=== PATIENT | male | born 1945 | race Caucasian/White ===

== ENCOUNTER 2020-10-10 10:44 | Inpatient (IN) ==
[2020-10-10] MEDS ORDERED: predniSONE 10 MG TABLET PO SCH (15:30)
[2020-10-10] MEDS ORDERED: Ondansetron ODT 4 MG TAB.RAPDIS PO PRN (15:30)
[2020-10-10] MEDS ORDERED: Sennosides 8.6 MG TABLET PO PRN (15:30)
[2020-10-10] MEDS ORDERED: Torsemide 20 MG TABLET PO SCH (17:00)
[2020-10-10] MEDS: Metoprolol XL (24 HR) Succ 50 MG TAB.ER.24H PO SCH (21:19)
[2020-10-10] MEDS: Melatonin 3 MG TABLET PO PRN (21:19)
[2020-10-10] MEDS: cephALEXin 500 MG CAPSULE PO SCH (21:19)
[2020-10-10] MEDS: Apixaban 5 MG TABLET PO SCH (21:19)
[2020-10-10] MEDS: Nystatin Cream 15 GM TUBE TP SCH (21:20)
[2020-10-10] MEDS: Budesonide/Formoterol 160/4.5 1 PUFF INH IH SCH (21:21)
[2020-10-11] MEDS: *HR* OxyCODONE Immed Rel 5 MG TABLET PO PRN (03:22)
[2020-10-11 06:45] LABS: Basophils % 0.1 %; Eosinophils # 0.1 K/mcL (0.0-0.6); Eosinophils % 0.6 %; Hematocrit 26.3 % (37.5-50.1); Hemoglobin 8.7 g/dL (12.9-16.9); Immature Granulocytes % 2.4 % (0-4); Lymphocytes # 0.9 K/mcL (0.6-4.6); Lymphocytes % 8.7 %; Mean Corpuscular HGB Conc 33.1 g/dL (31.6-35.5); Mean Corpuscular Hemoglobin 29.6 pg (28.0-33.3); Mean Corpuscular Volume 89.5 fL (83.0-100.0); Mean Platelet Volume 8.3 fL (9.4-12.4); Monocytes # 1.6 K/mcL (0.0-1.3); Monocytes % 16.4 %; Neutrophils # 7.1 K/mcL (1.6-8.9); Platelet Count 240 K/mcL (140-400); Red Blood Count 2.94 M/mcL (4.19-5.50); Red Cell Distribution Width 15.5 % (11.5-14.5); Segmented Neutrophils % 71.8 %; White Blood Count 9.9 K/mcL (4.3-11.1)
[2020-10-11] MEDS: Budesonide/Formoterol 160/4.5 1 PUFF INH IH SCH ×2 (07:01→20:02)
[2020-10-11] MEDS: Ipratropium/Albuterol Neb 3 ML IH PRN (07:01)
[2020-10-11 07:37] LABS: BUN/Creatinine Ratio 22 (6-26); Blood Urea Nitrogen 9 mg/dL (8-23); Calcium 8.2 mg/dL (8.6-10.3); Carbon Dioxide 43 mEq/L (23-29); Chloride 83 mEq/L (98-107); Glucose 111 mg/dL (70-105); Osmolality,Calculated 271 (280-300); Potassium 3.1 mEq/L (3.5-5.1); Sodium 131 mEq/L (136-145); eGFR For African Americans > 60 (> 60); eGFR For Non-African Americans > 60 (> 60)
[2020-10-11] MEDS ORDERED: Furosemide 40 MG TABLET PO SCH (09:00)
[2020-10-11] MEDS: Torsemide 20 MG TABLET PO SCH ×2 (09:21→16:38)
[2020-10-11] MEDS: cephALEXin 500 MG CAPSULE PO SCH ×3 (09:21→20:29)
[2020-10-11] MEDS: Folic Acid 1 MG TABLET PO SCH (09:21)
[2020-10-11] MEDS: Metoprolol XL (24 HR) Succ 50 MG TAB.ER.24H PO SCH ×2 (09:21→20:30)
[2020-10-11] MEDS: Apixaban 5 MG TABLET PO SCH ×2 (09:21→20:29)
[2020-10-11] MEDS: Aspirin Enteric Coated 81 MG Tablet PO SCH (09:21)
[2020-10-11] MEDS: DilTIAZem CD (24hr) 240 MG CAP.ER.24H PO SCH (09:22)
[2020-10-11] MEDS: polyethylene glycoL 3350 17 GM POWD.PACK PO SCH (09:22)
[2020-10-11] MEDS: Nystatin Cream 15 GM TUBE TP SCH ×2 (12:44→20:36)
[2020-10-11] MEDS: Magnesium Oxide 400 MG TABLET PO SCH (12:49)
[2020-10-11] MEDS: Melatonin 3 MG TABLET PO PRN (20:46)
[2020-10-12] MEDS: Ipratropium/Albuterol Neb 3 ML IH PRN (00:30)
[2020-10-12] MEDS: *HR* OxyCODONE Immed Rel 5 MG TABLET PO PRN ×2 (03:54→11:02)
[2020-10-12 06:01] LABS: Basophils % 0.1 %; Eosinophils % 0.2 %; Hematocrit 26.5 % (37.5-50.1); Hemoglobin 8.8 g/dL (12.9-16.9); Immature Granulocytes % 1.7 % (0-4); Lymphocytes % 10.8 %; Mean Corpuscular HGB Conc 33.2 g/dL (31.6-35.5); Mean Corpuscular Hemoglobin 29.9 pg (28.0-33.3); Mean Corpuscular Volume 90.1 fL (83.0-100.0); Mean Platelet Volume 8.4 fL (9.4-12.4); Monocytes # 1.3 K/mcL (0.0-1.3); Monocytes % 14.5 %; Neutrophils # 6.5 K/mcL (1.6-8.9); Platelet Count 281 K/mcL (140-400); Red Blood Count 2.94 M/mcL (4.19-5.50); Red Cell Distribution Width 15.6 % (11.5-14.5); Segmented Neutrophils % 72.7 %
[2020-10-12 06:18] LABS: BUN/Creatinine Ratio 24 (6-26); Blood Urea Nitrogen 10 mg/dL (8-23); Calcium 8.1 mg/dL (8.6-10.3); Carbon Dioxide 43 mEq/L (23-29); Chloride 83 mEq/L (98-107); Glucose 116 mg/dL (70-105); Osmolality,Calculated 274 (280-300); Potassium 2.8 mEq/L (3.5-5.1); Sodium 132 mEq/L (136-145); eGFR For African Americans > 60 (> 60); eGFR For Non-African Americans > 60 (> 60)
[2020-10-12] MEDS: Budesonide/Formoterol 160/4.5 1 PUFF INH IH SCH ×2 (09:32→20:26)
[2020-10-12] MEDS: Apixaban 5 MG TABLET PO SCH ×2 (09:51→21:26)
[2020-10-12] MEDS: Folic Acid 1 MG TABLET PO SCH (09:51)
[2020-10-12] MEDS: Aspirin Enteric Coated 81 MG Tablet PO SCH (09:51)
[2020-10-12] MEDS: DilTIAZem CD (24hr) 240 MG CAP.ER.24H PO SCH (09:51)
[2020-10-12] MEDS: polyethylene glycoL 3350 17 GM POWD.PACK PO SCH (09:51)
[2020-10-12] MEDS: cephALEXin 500 MG CAPSULE PO SCH ×3 (09:51→21:26)
[2020-10-12] MEDS: Metoprolol XL (24 HR) Succ 50 MG TAB.ER.24H PO SCH ×2 (09:52→21:26)
[2020-10-12] MEDS: Magnesium Oxide 400 MG TABLET PO SCH (09:52)
[2020-10-12] MEDS: Torsemide 20 MG TABLET PO SCH ×2 (09:52→16:48)
[2020-10-12] MEDS: Nystatin Cream 15 GM TUBE TP SCH ×2 (09:52→21:40)
[2020-10-13] MEDS: polyethylene glycoL 3350 17 GM POWD.PACK PO SCH (09:12)
[2020-10-13] MEDS: Aspirin Enteric Coated 81 MG Tablet PO SCH (09:15)
[2020-10-13] MEDS: Apixaban 5 MG TABLET PO SCH ×2 (09:15→21:41)
[2020-10-13] MEDS: DilTIAZem CD (24hr) 240 MG CAP.ER.24H PO SCH (09:15)
[2020-10-13] MEDS: Torsemide 20 MG TABLET PO SCH ×2 (09:15→17:08)
[2020-10-13] MEDS: cephALEXin 500 MG CAPSULE PO SCH ×3 (09:15→21:40)
[2020-10-13] MEDS: Magnesium Oxide 400 MG TABLET PO SCH (09:16)
[2020-10-13] MEDS: Metoprolol XL (24 HR) Succ 50 MG TAB.ER.24H PO SCH ×2 (09:16→21:41)
[2020-10-13] MEDS: Folic Acid 1 MG TABLET PO SCH (09:16)
[2020-10-13] MEDS: Nystatin Cream 15 GM TUBE TP SCH ×2 (09:16→21:40)
[2020-10-13] MEDS: Budesonide/Formoterol 160/4.5 1 PUFF INH IH SCH ×2 (10:08→20:12)
[2020-10-13] MEDS: Melatonin 3 MG TABLET PO PRN (21:41)
[2020-10-13] MEDS: *HR* OxyCODONE Immed Rel 5 MG TABLET PO PRN (23:51)
[2020-10-14] MEDS ORDERED: Acetaminophen 325 MG TABLET PO PRN (04:39)
[2020-10-14] MEDS: Folic Acid 1 MG TABLET PO SCH (09:26)
[2020-10-14] MEDS: Apixaban 5 MG TABLET PO SCH ×2 (09:26→20:47)
[2020-10-14] MEDS: cephALEXin 500 MG CAPSULE PO SCH ×3 (09:27→20:49)
[2020-10-14] MEDS: Magnesium Oxide 400 MG TABLET PO SCH (09:27)
[2020-10-14] MEDS: Aspirin Enteric Coated 81 MG Tablet PO SCH (09:27)
[2020-10-14] MEDS: Torsemide 20 MG TABLET PO SCH ×2 (09:27→15:47)
[2020-10-14] MEDS: DilTIAZem CD (24hr) 240 MG CAP.ER.24H PO SCH (09:27)
[2020-10-14] MEDS: Metoprolol XL (24 HR) Succ 50 MG TAB.ER.24H PO SCH ×2 (09:27→20:48)
[2020-10-14] MEDS: polyethylene glycoL 3350 17 GM POWD.PACK PO SCH (09:28)
[2020-10-14] MEDS: Budesonide/Formoterol 160/4.5 1 PUFF INH IH SCH ×2 (10:16→20:24)
[2020-10-14] MEDS: Nystatin Cream 15 GM TUBE TP SCH ×2 (11:20→20:49)
[2020-10-14] MEDS: *HR* OxyCODONE Immed Rel 5 MG TABLET PO PRN ×2 (12:28→20:47)
[2020-10-14 20:27] VITALS: RESP 18
[2020-10-14] MEDS: Melatonin 3 MG TABLET PO PRN (20:48)
[2020-10-15 04:24] LABS: Basophils % 0.1 %; Eosinophils # 0.1 K/mcL (0.0-0.6); Eosinophils % 0.9 %; Hematocrit 26.2 % (37.5-50.1); Hemoglobin 8.5 g/dL (12.9-16.9); Immature Granulocytes % 0.7 % (0-4); Lymphocytes # 0.9 K/mcL (0.6-4.6); Lymphocytes % 13.8 %; Mean Corpuscular HGB Conc 32.4 g/dL (31.6-35.5); Mean Corpuscular Hemoglobin 29.3 pg (28.0-33.3); Mean Corpuscular Volume 90.3 fL (83.0-100.0); Mean Platelet Volume 8.2 fL (9.4-12.4); Monocytes # 1.3 K/mcL (0.0-1.3); Monocytes % 19.6 %; Neutrophils # 4.4 K/mcL (1.6-8.9); Platelet Count 327 K/mcL (140-400); Red Cell Distribution Width 15.8 % (11.5-14.5); Segmented Neutrophils % 64.9 %; White Blood Count 6.7 K/mcL (4.3-11.1)
[2020-10-15 05:06] LABS: BUN/Creatinine Ratio 25 (6-26); Blood Urea Nitrogen 13 mg/dL (8-23); Calcium 8.1 mg/dL (8.6-10.3); Carbon Dioxide 41 mEq/L (23-29); Chloride 86 mEq/L (98-107); Glucose 103 mg/dL (70-105); Osmolality,Calculated 274 (280-300); Potassium 3.7 mEq/L (3.5-5.1); Sodium 132 mEq/L (136-145); eGFR For African Americans > 60 (> 60); eGFR For Non-African Americans > 60 (> 60)
[2020-10-15 05:07] LABS: Platelet Estimate Normal (Normal)
[2020-10-15 07:54] VITALS: BP 111/62; PULSE 87; TEMP 97.9; O2SAT 98
[2020-10-15] MEDS: Apixaban 5 MG TABLET PO SCH (08:46)
[2020-10-15] MEDS: Aspirin Enteric Coated 81 MG Tablet PO SCH (08:46)
[2020-10-15] MEDS: cephALEXin 500 MG CAPSULE PO SCH (08:46)
[2020-10-15] MEDS: Metoprolol XL (24 HR) Succ 50 MG TAB.ER.24H PO SCH (08:46)
[2020-10-15] MEDS: DilTIAZem CD (24hr) 240 MG CAP.ER.24H PO SCH (08:46)
[2020-10-15] MEDS: Torsemide 20 MG TABLET PO SCH (08:46)
[2020-10-15] MEDS: Folic Acid 1 MG TABLET PO SCH (08:47)
[2020-10-15] MEDS: polyethylene glycoL 3350 17 GM POWD.PACK PO SCH (08:47)
[2020-10-15] MEDS: Magnesium Oxide 400 MG TABLET PO SCH (08:47)
[2020-10-15] MEDS: Nystatin Cream 15 GM TUBE TP SCH (08:52)
[2020-10-15] MEDS: Budesonide/Formoterol 160/4.5 1 PUFF INH IH SCH (12:04)
== END 2020-10-15 14:45 | disposition home health service (06) | DRG 945 ==
LOC: INPGRE 15:28
PROVIDERS: ADMIT Family Medicine; ATTEND Family Medicine